=== PATIENT | male | born 1975 | race Caucasian/White ===

== ENCOUNTER 2020-07-01 09:45 | Outpatient (CLI) | payer MEDICAID | END 2020-07-01 09:46 | disposition critical access hospital (66) | LOC: EMS 09:45 | DX: R07.9 Chest pain, unspecified (principal); R06.02 Shortness of breath | CPT/HCPCS: A0425; A0429; A0999 ==

== ENCOUNTER 2020-07-01 09:48 | Emergency (ER) | payer MEDICAID ==
[2020-07-01] MEDS ORDERED: SODIUM CHLORIDE 0.9% 1,000 ML IV STA (10:05)
[2020-07-01 10:21] LABS: BASOPHILS # (AUTO) 0.1 10^3/uL (0.0-0.1); BASOPHILS % (AUTO) 1.4 %; EOSINOPHILS # (AUTO) 1.2 10^3/uL (0.0-0.7); EOSINOPHILS % (AUTO) 11.6 %; HGB - HEMOGLOBIN 15.7 g/dL (14.0-18.0); LYMPHOCYTES # (AUTO) 1.5 10^3/uL (1.5-3.5); LYMPHOCYTES % (AUTO) 14.8 %; MEAN CORPUSCULAR HEMOGLOBIN 27.5 pg (27.0-31.0); MEAN PLATELET VOLUME 9.3 fL (7.4-11.4); MONOCYTES # (AUTO) 0.9 10^3/uL (0.0-1.0); MONOCYTES % (AUTO) 9.1 %; NEUTROPHILS # (AUTO) 6.4 10^3/uL (1.5-6.6); NEUTROPHILS % (AUTO) 62.7 %; PLT - PLATELET COUNT 354 10^3/uL (130-450); RED CELL DISTRIBUTION WIDTH 15.4 % (12.0-15.0); WHITE BLOOD COUNT 10.2 x10^3/uL (4.8-10.8)
[2020-07-01 10:22] LABS: SLIDE REVIEW? Indicated
[2020-07-01 10:27] LABS: VBG OXYGEN SATURATION 90.8 % (60-80); VBG PCO2 44.5 mmHg (41-51); VBG PH 7.432 (7.31-7.41); VBG PO2 54.2 mmHg (25-47); VBG TOTAL CO2 30.4 mmol/L (24-29)
--- NOTE | 2020-07-01 10:30 | ED Physician Documentation ---
History of Present Illness - Stated complaint Stated Complaint: CP, COUGH - Chief complaint Chief Complaint: Resp - History obtained from History obtained from: Patient - Additonal information Additional information: 44-year-old man with past medical history of diabetes, asthma, new onset CHF diagnosed this past couple weeks, presents with chest pain intermittent over the past 2 weeks, worse with lying flat associated with lower extremity edema, nonproductive cough, nausea SOB and diaphoresis. Patient states that he was diagnosed with pneumonia last week and has finished 1 week of Augmentin. He had severe leg swelling that is now improving. Primary MD is Dr. Lancaster at [facility]. Note that our [facility] tried to contact them but they are closed over the weekend. Review of Systems Ten Systems: 10 systems reviewed and negative Cardiac: reports: Chest pain / pressure Respiratory: reports: Dyspnea, Cough GI: reports: Nausea Neurologic: reports: Generalized weakness PD PAST MEDICAL HISTORY - Past Medical History Past Medical History: Yes Endocrine/Autoimmune: Type 2 diabetes HEENT: Other - Past Surgical History Past Surgical History: Yes HEENT: Tonsil/Adenoidectomy - Present Medications Home Medications: Ambulatory Orders Medication Instructions Recorded Confirmed Home Medications Unobtainable 07/01/20 07/01/20 [HOME MEDICATIONS UNOBTAINABLE] - Allergies Allergies/Adverse Reactions: Allergies Allergy/AdvReac Type Severity Reaction Status Date / Time No Known Drug Allergies Allergy Verified 07/01/20 10:24 - Social History Does the pt smoke?: Yes Smoking Status: Current every day smoker Does the pt drink ETOH?: No Does the pt have substance abuse?: No - Immunizations Immunizations are current?: Yes - POLST Patient has POLST: No PD ED PE NORMAL - Vitals Vital signs reviewed: Yes - General General: Alert and oriented X 3, No acute distress, Well developed/nourished - HEENT HEENT: Atraumatic, PERRL, EOMI - Neck Neck: Supple, no meningeal sign - Cardiac Cardiac: Other (borderline tachycardic rate, regular rhythm) - Respiratory Respiratory: No respiratory distress, Other (BL dependent crackles) - Abdomen Abdomen: Non tender, Non distended - Derm Derm: Normal color - Extremities Extremities: No deformity, Other (1+ BL LE edema) - Neuro Neuro: Alert and oriented X 3 - Psych Psych: Normal mood, Normal affect Results - Vitals Vitals: Vital Signs - 24 hr 07/01/20 07/01/20 07/01/20 09:51 10:16 10:45 Temperature 36.0 C L Heart Rate 105 H 100 92 Respiratory 23 20 21 Rate Blood Pressure 120/94 H 139/98 H 143/103 H O2 Saturation 98 95 95 07/01/20 07/01/20 07/01/20 11:25 12:26 13:48 Temperature 36.8 C Heart Rate 95 88 90 Respiratory 18 18 16 Rate Blood Pressure 150/108 H 137/99 H 138/90 H O2 Saturation 94 96 97 Oxygen O2 Source Room air - Labs Labs: Laboratory Tests 07/01/20 07/01/20 07/01/20 10:15 10:15 10:15 WBC 10.2 RBC 5.70 Hgb 15.7 Hct 49.0 MCV 86.0 MCH 27.5 MCHC 32.0 RDW 15.4 H Plt Count 354 MPV 9.3 Neut # (Auto) 6.4 Lymph # (Auto) 1.5 [place] # (Auto) 0.9 Eos # (Auto) 1.2 H Baso # (Auto) 0.1 Absolute Nucleated RBC 0.00 Nucleated RBC % 0.0 Manual Slide Review Indicated RBC Morph Micro Appear 2+ ANISOCYTOSIS D-Dimer VBG pH VBG pCO2 VBG pO2 VBG HCO3 VBG Total CO2 VBG O2 Saturation VBG Base Excess Sodium 141 Potassium 4.1 Chloride 102 Carbon Dioxide 28 Anion Gap 11.0 BUN 15 Creatinine 0.9 Estimated GFR (MDRD) 92 Glucose 116 H Calcium 8.9 Total Bilirubin 0.7 AST 23 ALT 26 Alkaline Phosphatase 106 Troponin I High Sens 53.8 H* B-Natriuretic Peptide Total Protein 7.6 Albumin 3.7 Globulin 3.9 Albumin/Globulin Ratio 0.9 L Lipase 29 Nasal Adenovirus (PCR) Nasal B. parapertussis DNA (PCR) Nasal Coronavir 229E PCR Nasal Coronavir HKU1 PCR Nasal Coronavir NL63 PCR Nasal Coronavir OC43 PCR Nasal Enterovir/Rhinovir PCR Nasal Influenza B PCR Nasal Influenza A PCR Nasal Parainfluen 1 PCR Nasal Parainfluen 2 PCR Nasal Parainfluen 3 PCR Nasal Parainfluen 4 PCR Nasal RSV (PCR) Nasal B.pertussis DNA PCR Nasal C.pneumoniae (PCR) Yash Human Metapneumo PCR Nasal M.pneumoniae (PCR) Nasal SARS-CoV-2 (PCR) 07/01/20 07/01/20 07/01/20 10:15 10:15 10:15 WBC RBC Hgb Hct MCV MCH MCHC RDW Plt Count MPV Neut # (Auto) Lymph # (Auto) [place] # (Auto) Eos # (Auto) Baso # (Auto) Absolute Nucleated RBC Nucleated RBC % Manual Slide Review RBC Morph Micro Appear D-Dimer 808.9 H VBG pH 7.432 H VBG pCO2 44.5 VBG pO2 54.2 H VBG HCO3 29.0 H VBG Total CO2 30.4 H VBG O2 Saturation 90.8 H VBG Base Excess 4.0 H Sodium Potassium Chloride Carbon Dioxide Anion Gap BUN Creatinine Estimated GFR (MDRD) Glucose Calcium Total Bilirubin AST ALT Alkaline Phosphatase Troponin I High Sens B-Natriuretic Peptide 255 H Total Protein Albumin Globulin Albumin/Globulin Ratio Lipase Nasal Adenovirus (PCR) Nasal B. parapertussis DNA (PCR) Nasal Coronavir 229E PCR Nasal Coronavir HKU1 PCR Nasal Coronavir NL63 PCR Nasal Coronavir OC43 PCR Nasal Enterovir/Rhinovir PCR Nasal Influenza B PCR Nasal Influenza A PCR Nasal Parainfluen 1 PCR Nasal Parainfluen 2 PCR Nasal Parainfluen 3 PCR Nasal Parainfluen 4 PCR Nasal RSV (PCR) Nasal B.pertussis DNA PCR Nasal C.pneumoniae (PCR) Yash Human Metapneumo PCR Nasal M.pneumoniae (PCR) Nasal SARS-CoV-2 (PCR) 07/01/20 10:35 WBC RBC Hgb Hct MCV MCH MCHC RDW Plt Count MPV Neut # (Auto) Lymph # (Auto) [place] # (Auto) Eos # (Auto) Baso # (Auto) Absolute Nucleated RBC Nucleated RBC % Manual Slide Review RBC Morph Micro Appear D-Dimer VBG pH VBG pCO2 VBG pO2 VBG HCO3 VBG Total CO2 VBG O2 Saturation VBG Base Excess Sodium Potassium Chloride Carbon Dioxide Anion Gap BUN Creatinine Estimated GFR (MDRD) Glucose Calcium Total Bilirubin AST ALT Alkaline Phosphatase Troponin I High Sens B-Natriuretic Peptide Total Protein Albumin Globulin Albumin/Globulin Ratio Lipase Nasal Adenovirus (PCR) NOT DETECTED Nasal B. parapertussis DNA (PCR) NOT DETECTED Nasal Coronavir 229E PCR NOT DETECTED Nasal Coronavir HKU1 PCR NOT DETECTED Nasal Coronavir NL63 PCR NOT DETECTED Nasal Coronavir OC43 PCR NOT DETECTED Nasal Enterovir/Rhinovir PCR NOT DETECTED Nasal Influenza B PCR NOT DETECTED Nasal Influenza A PCR NOT DETECTED Nasal Parainfluen 1 PCR NOT DETECTED Nasal Parainfluen 2 PCR NOT DETECTED Nasal Parainfluen 3 PCR NOT DETECTED Nasal Parainfluen 4 PCR NOT DETECTED Nasal RSV (PCR) NOT DETECTED Nasal B.pertussis DNA PCR NOT DETECTED Nasal C.pneumoniae (PCR) NOT DETECTED Yash Human Metapneumo PCR NOT DETECTED Nasal M.pneumoniae (PCR) NOT DETECTED Nasal SARS-CoV-2 (PCR) NOT DETECTED PD MEDICAL DECISION MAKING - ED course ED course: d/w Dr. Singh who says we need transfer since no echo over the weekend. d/w Dr. Cross, scale manager and Dr. Garner, hospitalist at [facility] who will accept the patient in transfer. Departure - Departure Disposition: 02 Transfer Acute Care Hosp Clinical Impression: New onset of congestive heart failure, Chest pain, NSTEMI (non-ST elevated myocardial infarction), Renal mass, left, Pleural effusion, Gallstone Condition: Stable Discharge Date/Time: 07/01/20 13:53
--- NOTE | 2020-07-01 10:30 | XRAY Report ---
PROCEDURE: Chest 1 View X-Ray INDICATIONS: Chest Pain TECHNIQUE: One view of the chest was acquired. COMPARISON: None FINDINGS: Surgical changes and devices: None. Lungs and pleura: No pleural effusions or pneumothorax. Minimal generalized interstitial prominence can be seen. Mediastinum: Mediastinal contours appear normal. Heart size is at the upper limits of normal. Bones and chest wall: No suspicious bony lesions. Overlying soft tissues appear unremarkable. IMPRESSION: Interstitial prominence is seen, which is nonspecific. Differential diagnosis includes pulmonary sury a and artifact. Reviewed by: Ward Ty MD on 07/01/2020 9:29 AM JONNA Approved by: Ward Ty MD on 07/01/2020 9:29 AM JONNA Station ID: [id number]
[2020-07-01] MEDS ORDERED: ONDANSETRON 4 MG/2 ML VIAL IVP STA (10:38)
[2020-07-01 10:46] LABS: ALBUMIN 3.7 g/dL (3.2-5.5); ALBUMIN/GLOBULIN RATIO 0.9 (1.0-2.2); BILIRUBIN,TOTAL 0.7 mg/dL (0.2-1.0); CALCIUM 8.9 mg/dL (8.5-10.3); CREATININE 0.9 mg/dL (0.6-1.2); POTASSIUM 4.1 mmol/L (3.5-5.0); TOTAL PROTEIN 7.6 g/dL (6.7-8.2)
[2020-07-01 10:53] LABS: RBC MORPHOLOGY (MULTIPLE) 2+ ANISOCYTOSIS (NORMAL)
[2020-07-01] MEDS ORDERED: ASPIRIN 325 MG TABLET PO STA (11:29)
[2020-07-01] MEDS ORDERED: FUROSEMIDE 40 MG/4 ML VIAL IVP STA (11:30)
[2020-07-01] MEDS ORDERED: IOPAMIDOL-300 100 ML VIAL ONE (11:35)
[2020-07-01] MEDS ORDERED: IOPAMIDOL-300 100 ML VIAL IVP ONE (12:02)
--- NOTE | 2020-07-01 12:13 | CT Report ---
PROCEDURE: ANGIO CHEST W/WO INDICATIONS: chest pain, elevated dimer CONTRAST: IV CONTRAST: Isovue 300 ml: 80 PO CONTRAST: *NO PO CONTRAST TECHNIQUE: After the administration of intravenous contrast, 2 mm thick sections acquired from the pulmonary api suzette to the posterior costophrenic angles. 3-dimensional maximum intensity projection (MIP) coronal a nd sagittal reformats were then acquired through the thorax. For radiation dose reduction, the follow ing was used: automated exposure control, adjustment of mA and/or kV according to patient size. COMPARISON: Correlation is made with chest x-ray, 07/01/2020. FINDINGS: Image quality: Excellent. Pulmonary arteries: Pulmonary arteries are normal in size, and demonstrate no intraluminal filling d efects to suggest central pulmonary embolism. Lungs and pleura: There is a small to moderate right-sided pleural effusion seen. Mild dependent atel ectasis can be seen at the right lung base. The left-sided pleural effusion is seen. There is no pneu mothorax. The central airways are patent. Central and peripheral airways are patent. Mediastinum: Heart size is normal, without pericardial effusion. Numerous borderline mediastinal lym ph nodes are seen. Thoracic aorta is normal in caliber and enhancement. Esophagus is normal in calib er, without hiatal hernia. Bones and chest wall: No suspicious bony lesions. Ribs and thoracic spine appear intact throughout. The thyroid is normal. No axillary or supraclavicular adenopathy. Abdomen: A gallstone can be seen within the gallbladder. Along the posterolateral aspect of the left kidney, there is a low-density lesion, which cannot be defined as a simple cyst, measuring up to 5 c m., Visualized upper abdominal solid organs appear normal in the early arterial phase of enhancement. IMPRESSION: Negative for pulmonary embolism. Small to moderate right-sided pleural effusion. Along the posterior lateral aspect of the left kidney, there is a 5 cm low-density lesion cannot be d efined as a simple cyst. Differential diagnosis includes hyperdense cyst and neoplasm. If this has no t already been previously worked up, then a renal mass protocol CT is recommended, when clinically ap propriate. Incidental note is made of: Gallstone Borderline prominent mediastinal lymph nodes. Reviewed by: Ward Ty MD on 07/01/2020 11:12 AM JONNA Approved by: Ward Ty MD on 07/01/2020 11:12 AM JONNA Station ID: [id number]
[2020-07-01 12:33] LABS: CORONAVIRUS 229E-RESP PCR NOT DETECTED; CORONAVIRUS HKU1-RESP PCR NOT DETECTED; CORONAVIRUS NL63-RESP PCR NOT DETECTED; CORONAVIRUS OC43-RESP PCR NOT DETECTED; HUMAN METAPNEUMOVIRUS NOT DETECTED; INFLUENZA A- RESP PCR PANEL NOT DETECTED; RHINOVIRUS/ENTEROVIRUS NOT DETECTED; SARS-CoV-2 -RESP PCR PANEL NOT DETECTED
[2020-07-01 12:34] LABS: B. PARAPERTUSSIS- RESP PCR PAN NOT DETECTED; B. PERTUSSIS- RESP PCR PANEL NOT DETECTED; C. PNEUMONIAE- RESP PCR PANEL NOT DETECTED; INFLUENZA B - RESP PCR PANEL NOT DETECTED; M. PNEUMONIAE- RESP PCR PANEL NOT DETECTED; PARAINFLUENZA VIRUS 1 NOT DETECTED; PARAINFLUENZA VIRUS 2 NOT DETECTED; PARAINFLUENZA VIRUS 3 NOT DETECTED; PARAINFLUENZA VIRUS 4 NOT DETECTED; RSV- RESP PCR PANEL NOT DETECTED
[2020-07-01 13:49] VITALS: BP 138/90
== END 2020-07-01 13:53 | disposition short-term general hospital (02) ==
LOC: ED 09:48
DX: I21.3 ST elevation (STEMI) myocardial infarction of unspecified site (principal); I50.9 Heart failure, unspecified; E11.9 Type 2 diabetes mellitus without complications; F17.200 Nicotine dependence, unspecified, uncomplicated; N28.89 Other specified disorders of kidney and ureter; K80.20 Calculus of gallbladder without cholecystitis without obstruction; Z20.822 Contact with and (suspected) exposure to COVID-19
CPT/HCPCS: 0202U; 36415; 71045; 71275; 80053; 82803; 83690; 83880; 84484; 85025; 85379; 93005; 96361; 96374; 96375; 99284; A9270; Q9967

== ENCOUNTER 2020-07-01 14:02 | Outpatient (CLI) | payer MEDICAID | END 2020-07-01 14:03 | disposition short-term general hospital (02) | LOC: EMS 14:02 | PROVIDERS: ATTEND Emergency Medicine | DX: I21.4 Non-ST elevation (NSTEMI) myocardial infarction (principal); I50.9 Heart failure, unspecified; J90 Pleural effusion, not elsewhere classified; N28.89 Other specified disorders of kidney and ureter; K80.20 Calculus of gallbladder without cholecystitis without obstruction | CPT/HCPCS: A0425; A0428 ==